=== PATIENT | female | born 1975 | race Asian ===

== ENCOUNTER 2016-10-22 09:31 | Emergency (ER) | payer OTHER ==
[~2016-10-22] VITALS: Ht 170.2 cm; Wt 65.8 kg
[2016-10-22 11:23] LABS: PLATELET COUNT 128 K/uL (152-353)
[2016-10-22 12:08] LABS: POTASSIUM 3.5 mmol/L (3.6-5.2); SODIUM 139 mmol/L (136-145)
[2016-10-22 15:21] VITALS: BP 104/68; TEMP 98.2
== END 2016-10-22 15:25 | disposition home or self-care (01) ==
LOC: ED 09:31
PROVIDERS: Specialist
DX: O34.80 Maternal care for other abnormalities of pelvic organs, unspecified trimester (principal); N83.202 Unspecified ovarian cyst, left side
CPT/HCPCS: 36415; 80053; 80307; 81000; 83735; 84702; 85027; 96365; 99284; G0479

== ENCOUNTER 2023-05-18 11:11 | Emergency (ER) | payer OTHER ==
[~2023-05-18] VITALS: Ht 172.7 cm; Wt 63.5 kg
[2023-05-18 11:13] VITALS: BP 149/98; TEMP 97.5
== END 2023-05-18 13:28 | disposition home or self-care (01) ==
LOC: ED 11:11
DX: B34.9 Viral infection, unspecified (principal); R51.9 Headache, unspecified
CPT/HCPCS: 87635; 99283; U0003